=== PATIENT | female | born 1985 | race Native Hawaiian/Other Pacific Islander ===

== ENCOUNTER 2019-11-13 21:32 | Emergency (ER) | payer OTHER ==
[~2019-11-13] VITALS: Ht 172.7 cm; Wt 68.0 kg
[2019-11-13] MEDS ORDERED: LEXAPRO20 MG PO (21:47)
[2019-11-13] MEDS ORDERED: HYDROXYZINE HCL25 M2 PO (21:49)
[2019-11-13 21:50] LABS: URINE BILIRUBIN NEGATIVE (Negative); URINE BLOOD 3+ (Negative); URINE CLARITY CLEAR; URINE COLOR YELLOW; URINE GLUCOSE-RANDOM* NEGATIVE (Negative); URINE KETONES NEGATIVE (Negative); URINE PROTEIN (DIPSTICK) 2+ (Negative); URINE SPECIFIC GRAVITY >= 1.030 (1.005-1.035); URINE UROBILINOGEN 0.2 E.U./dl (0.2-1.0)
[2019-11-13 21:51] LABS: URINE LEUKOCYTES-REFLEX 1+ (Negative); URINE NITRITE-REFLEX POSITIVE (Negative)
[2019-11-13 22:10] LABS: SQUAMOUS 4-10 Moderate /LPF (0-3)
[2019-11-13 22:11] LABS: MUCUS 4-6 Moderate strn/LPF (None Seen)
[2019-11-13 22:16] LABS: URINE RBC 3-10 Few /HPF (0-2)
[2019-11-13 22:17] LABS: BACTERIA-REFLEX >30 Many /HPF (None Seen); CASTS None Seen /LPF (None Seen); CRYSTALS None Seen /LPF (None Seen)
[2019-11-13 23:45] LABS: BASOPHILS 0.3 % (0.0-2.0); EOSINOPHILS 0.3 % (0.0-3.0); HEMATOCRIT 33.4 % (37.0-47.0); HEMOGLOBIN 11.6 gm/dL (12.0-15.0); MCH 29.9 pg (26.0-34.0); MCHC 34.6 g/dL (28.0-37.0); MCV 86.4 fL (80.0-100.0); MONOCYTES 4.9 % (1.0-8.0); PLATELET COUNT 217 thou/uL (150-400); POLYS 73.5 % (36.0-66.0); RBC 3.87 mil/uL (4.20-5.00); RDW 13.9 % (10.5-14.5); WBC 8.1 thou/uL (4.0-11.0)
[2019-11-13 23:56] LABS: CALCIUM 8.5 mg/dL (8.5-10.1); CREATININE 0.8 mg/dL (0.6-1.0); POTASSIUM 3.5 mmol/L (3.5-5.1)
[2019-11-14] MEDS ORDERED: KEFLEX500 M1 PO (00:53)
[2019-11-14 01:07] VITALS: BP 123/76
== END 2019-11-14 01:09 | disposition home or self-care (01) ==
LOC: ER 21:32
PROVIDERS: Emergency Medicine
DX: N12 Tubulo-interstitial nephritis, not specified as acute or chronic (principal); Z79.899 Other long term (current) drug therapy

== ENCOUNTER 2020-02-13 08:24 | Emergency (ER) | payer OTHER ==
[~2020-02-13] VITALS: Ht 172.7 cm; Wt 66.7 kg
[~2020-02-13 08:24] MED LIST: HYDROXYZINE HCL25 M2 PO; KEFLEX500 M1 PO; LEXAPRO20 MG PO
[2020-02-13] MEDS ORDERED: SEROQUEL 100 M100 MG PO (10:21)
[2020-02-13 10:32] LABS: ABSOLUTE NEUTROPHILS 5.5 thou/uL (1.4-8.2); BASOPHILS 0.3 % (0.0-2.0); EOSINOPHILS 0.1 % (0.0-3.0); HEMATOCRIT 35.7 % (37.0-47.0); HEMOGLOBIN 11.9 gm/dL (12.0-15.0); LYMPHOCYTES 19.3 % (24.0-44.0); MCH 27.9 pg (26.0-34.0); MCHC 33.4 g/dL (28.0-37.0); MCV 83.5 fL (80.0-100.0); MONOCYTES 4.7 % (1.0-8.0); PLATELET COUNT 200 thou/uL (150-400); POLYS 75.6 % (36.0-66.0); RBC 4.27 mil/uL (4.20-5.00); RDW 13.3 % (10.5-14.5); WBC 7.3 thou/uL (4.0-11.0)
[2020-02-13 10:33] LABS: URINE BLOOD 2+ (Negative); URINE COLOR YELLOW; URINE GLUCOSE-RANDOM* NEGATIVE (Negative); URINE KETONES 3+ (Negative); URINE NITRITE-REFLEX NEGATIVE (Negative); URINE PROTEIN (DIPSTICK) 2+ (Negative); URINE SPECIFIC GRAVITY >= 1.030 (1.005-1.035)
[2020-02-13 10:37] LABS: URINE CLARITY CLOUDY; URINE LEUKOCYTES-REFLEX 1+ (Negative)
[2020-02-13 10:38] LABS: CREATININE 0.8 mg/dL (0.6-1.0); POTASSIUM 3.5 mmol/L (3.5-5.1)
[2020-02-13 10:40] LABS: ICTOTEST (BILI CONFIRMATORY) Negative (Negative); URINE BILIRUBIN NEGATIVE (Negative)
[2020-02-13 10:44] LABS: ALBUMIN 4.3 g/dL (3.4-5.0); TOTAL BILIRUBIN 1.8 mg/dL (0.2-1.0); TOTAL PROTEIN 7.7 g/dL (6.4-8.2)
[2020-02-13 10:45] LABS: URINE REDUCING SUBSTANCE NEGATIVE
[2020-02-13 10:59] LABS: BACTERIA-REFLEX 1-9 Few /HPF (None Seen); CASTS None Seen /LPF (None Seen); CRYSTALS None Seen /LPF (None Seen); SQUAMOUS 0-3 Few /LPF (0-3); URINE RBC 0-2 Rare /HPF (0-2)
[2020-02-13 11:00] LABS: URINE WBC-REFLEX 6-15 Few /HPF (0-5)
[2020-02-13] MEDS ORDERED: KEFLEX500 M1 PO (12:35)
[2020-02-13] MEDS ORDERED: ZOFRAN ODT4 MG PO (12:35)
[2020-02-13 12:49] VITALS: BP 115/76
== END 2020-02-13 12:50 | disposition home or self-care (01) ==
LOC: ER 08:24
PROVIDERS: Emergency Medicine
DX: R11.2 Nausea with vomiting, unspecified (principal); Z79.899 Other long term (current) drug therapy

== ENCOUNTER 2020-09-29 09:39 | Emergency (ER) | payer OTHER ==
[~2020-09-29] VITALS: Ht 172.7 cm; Wt 69.0 kg
[~2020-09-29 09:39] MED LIST changes: +SEROQUEL 100 M100 MG PO; +ZOFRAN ODT4 MG PO
[2020-09-29 09:49] VITALS: BP 115/74
[2020-09-29 10:14] LABS: URINE BILIRUBIN NEGATIVE (Negative); URINE BLOOD 1+ (Negative); URINE CLARITY CLEAR; URINE COLOR ORANGE; URINE GLUCOSE-RANDOM* TRACE (Negative); URINE KETONES NEGATIVE (Negative); URINE PROTEIN (DIPSTICK) 1+ (Negative); URINE SPECIFIC GRAVITY >= 1.030 (1.005-1.035)
[2020-09-29 10:16] LABS: URINE LEUKOCYTES-REFLEX 1+ (Negative); URINE NITRITE-REFLEX POSITIVE (Negative)
[2020-09-29 10:28] LABS: SQUAMOUS 4-10 Moderate /LPF (0-3)
[2020-09-29 10:29] LABS: BACTERIA-REFLEX 1-9 Few /HPF (None Seen); CASTS None Seen /LPF (None Seen); CRYSTALS None Seen /LPF (None Seen); URINE RBC 3-10 Few /HPF (NONE SEEN)
[2020-09-29] MEDS ORDERED: MACROBID 100 M100 M2 PO (10:52)
[2020-09-29] MEDS ORDERED: DIFLUCAN150 MG PO (10:52)
== END 2020-09-29 10:50 | disposition home or self-care (01) ==
LOC: ER 09:39
PROVIDERS: Emergency Medicine
DX: N39.0 Urinary tract infection, site not specified (principal); A64 Unspecified sexually transmitted disease